=== PATIENT | female | born 1955 | race Caucasian/White ===

== ENCOUNTER → 2017-08-20 | Outpatient (CLI) | payer OTHER | END | disposition home or self-care (01) | LOC: OIH 13:34 | PROVIDERS: ATTEND Internal Medicine Cardiovascular Disease | DX: Z13.6 Encounter for screening for cardiovascular disorders (principal) | CPT/HCPCS: 75571 ==

== ENCOUNTER → 2024-06-09 | Outpatient (CLI) | payer MEDICARE ==
[~2024-06-09] MED LIST: IOHEXOL 350 MG/ML 100ML INFUS..BTL IV ONE; IOHEXOL-350 50ML VIAL IV ONE; metoPROLOL tartRATE 1 MG/ML 5ML VIAL IV ONE
--- NOTE | 2024-06-10 08:52 | HMCIMG ---
CT OF THE CHEST WITH CONTRAST- CT Cardiac Angio co-interpretation This is done as part of the CT cardiac angiogram study. The interpretation of the coronary arteries will be done by poultry dresser in a separate report. History: over-read Comparison: none CT Dose Index (CTDI): 77.90 mGy Dose Length Product (DLP): 493.40 total mGy PROTOCOL: Examination is done at 2.5 millimeter volumetric acquisition after contrast administration with Isovue 370, 100 cc IV, without complications. Photography is done at 5 millimeter thick intervals for the thorax. The examination begins above the heart and therefore the lung apices are incompletely included. The rest of the left lung is included but the right lung is only included up to its middle third. The periphery of the right lung is not included in the study. FINDINGS: The visualized part of the airway is preserved. The bony and soft tissue structures of the chest wall are unremarkable. The aorta is unremarkable. No mediastinal lymphadenopathy is seen. The lung windows demonstrate no worrisome pulmonary nodules, masses or infiltrates. There is no evidence of pulmonary embolism in the visualized lung segments. The upper abdominal views are unremarkable. Impression: No significant abnormalities identified.
== END | disposition home or self-care (01) ==
LOC: RAH 10:36
PROVIDERS: ATTEND Internal Medicine Cardiovascular Disease
DX: R06.02 Shortness of breath (principal)
CPT/HCPCS: 75574; J3490; Q9967 ×2

== ENCOUNTER → 2024-07-12 | Outpatient (CLI) | payer MEDICARE ==
[~2024-07-12] VITALS: Ht 161.3 cm; Wt 103.0 kg
[~2024-07-12] MED LIST changes: +ASPI-1443 PO; +BERB500C PO; +DiphenhydrAMINE HCL 50 MG/ML VIAL IVP SCH; +EMPA10TA PO; -IOHEXOL 350 MG/ML 100ML INFUS..BTL IV ONE; -IOHEXOL-350 50ML VIAL IV ONE; +LISI10TA24 PO; +METO-408 PO; +ROSU5TAB51 PO; +TIRZ12.5 SQ; -metoPROLOL tartRATE 1 MG/ML 5ML VIAL IV ONE
[2024-07-12 13:43] LABS: BASOPHILS # (AUTO) 0.07 K/uL (0.00-0.20); BASOPHILS % (AUTO) 0.9 % (0.0-5.0); EOSINOPHILS # (AUTO) 0.16 K/uL (0.00-0.70); HEMATOCRIT 45.9 % (36-48); IMMATURE GRANULOCYTE ABSOLUTE 0.03 K/uL (0-1); LYMPHOCYTES # (AUTO) 2.5 K/uL (1.0-4.8); LYMPHOCYTES % (AUTO) 31.1 % (21.0-51.0); MEAN CORPUSCULAR HEMOGLOBIN 28.6 pg (27.0-33.0); MEAN CORPUSCULAR HGB CONC 32.2 g/dL (32.0-36.0); MEAN CORPUSCULAR VOLUME 88.8 fL (79-99); MONOCYTES # (AUTO) 0.5 K/uL (0.1-1.0); MONOCYTES % (AUTO) 6.3 % (3.0-13.0); NEUTROPHILS # (AUTO) 4.8 K/uL (1.8-7.7); NEUTROPHILS % (AUTO) 59.3 % (40.0-77.0); PLATELET COUNT (AUTO) 253 K/uL (130-400); RED BLOOD CELL COUNT(AUTO) 5.17 MIL/uL (4.00-5.50); RED CELL DISTRIBUTION WIDTH 12.4 % (11.0-15.5); WHITE BLOOD COUNT (AUTO) 8.1 K/uL (4.8-10.8)
[2024-07-12 13:50] LABS: CREATININE 1.1 mg/dL (0.5-1.0); POTASSIUM 4.9 mmol/L (3.5-5.1)
[2024-07-12 13:54] LABS: INR 0.95 (0.85-1.15); PROTHROMBIN TIME 10.1 SEC (9.6-11.6)
[2024-07-12 13:55] LABS: PARTIAL THROMBOPLASTIN TIME 26.1 SEC (26.3-35.5)
[2024-07-12 14:05] VITALS: BP 107/56; PULSE 79; RESP 14; TEMP 97.5
--- NOTE | 2024-07-13 07:01 | EKG ---
[facility] Test Date: 2024-07-12 Test Time: 13:33:35 Pat Name: AVA PORTILLO Department: [facility] Room: Gender: F [employer] Supervisor: [id number] : 1955 Requested By: BIMAL PARIKH Order Number: [id number] Reading MD: Jayjay Rodríguez Measurements Intervals Welda Rate: 81 P: 16 AK: 171 QRS: 68 QRSD: 89 T: 24 QT: 379 QTc: 441 Interpretive Statements Sinus rhythm Poor R wave progression No previous ECG available for comparison Electronically Signed On 07-15-2024 15:03:10 CDT by Jayjay Rodríguez Please click the below link to view image of tracing.
== END | disposition home or self-care (01) ==
LOC: EDSTATUS 12:00 → DAH 12:40
PROVIDERS: ATTEND Internal Medicine Cardiovascular Disease
DX: I10 Essential (primary) hypertension (principal); R94.39 Abnormal result of other cardiovascular function study; E11.9 Type 2 diabetes mellitus without complications; E78.00 Pure hypercholesterolemia, unspecified; R53.83 Other fatigue; R06.02 Shortness of breath
CPT/HCPCS: 36415; 80048; 85025; 85610; 85730; 93005

== ENCOUNTER 2024-07-21 05:49 | Day surgery (SDC) | payer MEDICARE ==
[2024-07-19 12:36] LABS: BASOPHILS # (AUTO) 0.05 K/uL (0.00-0.20); BASOPHILS % (AUTO) 0.6 % (0.0-5.0); EOSINOPHILS # (AUTO) 0.15 K/uL (0.00-0.70); EOSINOPHILS % (AUTO) 1.8 % (0.0-8.0); HEMATOCRIT 45.5 % (36-48); IMMATURE GRANULOCYTE ABSOLUTE 0.03 K/uL (0-1); LYMPHOCYTES # (AUTO) 2.6 K/uL (1.0-4.8); LYMPHOCYTES % (AUTO) 31.8 % (21.0-51.0); MEAN CORPUSCULAR HGB CONC 32.5 g/dL (32.0-36.0); MONOCYTES # (AUTO) 0.5 K/uL (0.1-1.0); MONOCYTES % (AUTO) 6.6 % (3.0-13.0); NEUTROPHILS # (AUTO) 4.8 K/uL (1.8-7.7); NEUTROPHILS % (AUTO) 58.8 % (40.0-77.0); PLATELET COUNT (AUTO) 270 K/uL (130-400); RED BLOOD CELL COUNT(AUTO) 5.11 MIL/uL (4.00-5.50); RED CELL DISTRIBUTION WIDTH 12.4 % (11.0-15.5); WHITE BLOOD COUNT (AUTO) 8.2 K/uL (4.8-10.8)
[2024-07-19 12:44] LABS: CREATININE 0.9 mg/dL (0.5-1.0); POTASSIUM 4.4 mmol/L (3.5-5.1)
[2024-07-19 12:59] VITALS: BP 149/94; PULSE 81; RESP 17; TEMP 98.1
[2024-07-19 13:07] LABS: INR 0.96 (0.85-1.15); PROTHROMBIN TIME 10.2 SEC (9.6-11.6)
[2024-07-19 13:08] LABS: PARTIAL THROMBOPLASTIN TIME 28.1 SEC (26.3-35.5)
[2024-07-21] VITALS (10 sets, daily range): BP systolic 120–152; BP diastolic 58–76; PULSE 67–83; RESP 13–17; TEMP 97.4–97.7
[~2024-07-21] VITALS: Ht 161.3 cm; Wt 102.3 kg
[~2024-07-21 05:49] MED LIST changes: -DiphenhydrAMINE HCL 50 MG/ML VIAL IVP SCH
[2024-07-21] MEDS ORDERED: IOHEXOL-350 50ML VIAL IV ONE (07:08)
[2024-07-21] MEDS ORDERED: LIDOCAINE HCL 400MG/20ML VIAL ONE (07:08)
[2024-07-21] MEDS ORDERED: IOHEXOL 350 MG/ML 100ML INFUS..BTL IV ONE (07:08)
[2024-07-21] MEDS ORDERED: VERAPAMIL HCL 2.5 MG/ML VIAL ONE (07:08)
[2024-07-21] MEDS ORDERED: niCARDIpine 25MG INJ IV ONE (07:08)
[2024-07-21] MEDS ORDERED: NITROGLYCERIN 50MG VIAL ONE (07:09)
[2024-07-21] MEDS ORDERED: HEParin 10,000 UNIT/10ML (1,000 UNIT/ML) VIAL ONE (07:09)
[2024-07-21] MEDS ORDERED: HEParin-NS 1,000 UNIT/500 ML 1,000 ML IV ONE (07:09)
[2024-07-21] MEDS: 0.9%NACL 1000ML 1,000 ML IV SCH (07:25)
[2024-07-21] MEDS ORDERED: FENTanyl CITRate PF 50 MCG/1 ML 2ML VIAL ONE (07:30)
[2024-07-21] MEDS ORDERED: MIDAZOLAM HCL 1 MG/ML 2ML VIAL ONE (07:31)
[2024-07-21] MEDS ORDERED: DiphenhydrAMINE HCL 50 MG/ML VIAL ONE (07:36)
[2024-07-21] MEDS ORDERED: [UNRECOGNIZED DRUG - OTHER] IV SCH (09:00)
--- NOTE | 2024-07-21 11:07 | CCATH ---
PRIMARY CABLE MACHINE OPERATOR: Gilberto Kaur MD PROCEDURES PERFORMED: Ultrasound-guided right radial artery access, left heart catheterization, left and right coronary arteriography, left ventricular angiography. INDICATIONS: This 69-year-old lady presents with dyspnea on exertion. A CT coronary angiogram was read as showing a proximal 70% LAD stenosis; however, it was thought that the stenosis may be underestimated because of motion artifact. No other significant stenoses were identified. TECHNIQUE: After informed consent and premedication, the patient was brought to the cardiac catheterization laboratory in a fasting state where the right radial artery was accessed utilizing the ultrasound-guided micropuncture technique. A 6-Urdu TIG catheter and a 6-Urdu pigtail catheter were used. FINDINGS: LEFT MAIN: The left main has 0% stenosis. LAD: The LAD has mild disease only proximally. CIRCUMFLEX: The circumflex is nondominant. The large second obtuse marginal branch contains a 30% stenosis proximally. No other significant disease. RIGHT CORONARY ARTERY: The dominant right coronary artery has a 20-30% stenosis proximally and no other significant disease. LEFT VENTRICULAR ANGIOGRAPHY: The resting left ventricular end-diastolic pressure is 8 mmHg. There are no obvious wall motion abnormalities. The ejection fraction is approximately 60%. There is no aortic stenosis and no mitral regurgitation seen. The arteriotomy was closed with a TR band. MEDICATIONS: The patient received Versed 1 mg IV, fentanyl 25 mcg IV. She received a radial artery cocktail just after sheath insertion and a second radial artery cocktail just prior to sheath removal. Case start 07:35, case end 08:35. IMPRESSION: This patient does not have any significant coronary artery disease. The Ejection fraction is normal. PLAN: Continue medical therapy. TID: [id number] RECEIPT: [id number]
--- NOTE | 2024-07-21 11:15 | NUR ---
TR BAND REMOVED AT THIS TIME RIGHT RADIAL SITE ASYMPTOMATIC. STERILE GAUZE TEGADERM APPLIED TO AREA.
== END 2024-07-21 12:29 | disposition home or self-care (01) ==
LOC: DAH 05:49
PROVIDERS: ATTEND Internal Medicine Cardiovascular Disease
DX: R94.39 Abnormal result of other cardiovascular function study (principal); I25.10 Atherosclerotic heart disease of native coronary artery without angina pectoris; R06.09 Other forms of dyspnea; I10 Essential (primary) hypertension; E11.9 Type 2 diabetes mellitus without complications; E78.00 Pure hypercholesterolemia, unspecified; Z90.710 Acquired absence of both cervix and uterus; Z79.82 Long term (current) use of aspirin; Z79.01 Long term (current) use of anticoagulants; Z88.0 Allergy status to penicillin; Z79.899 Other long term (current) drug therapy
CPT/HCPCS: 80048; 85025; 85610; 85730; 36415; 93458; 82948; C1769; C1894 ×2; Q9965; J1200; J3010; J3490 ×3; J7030; J1644 ×2; J2250; Q9967 ×2; A4215; A6402; A4335; A4222; A4221; A4663; A4216; A6206; A4606; A4223 ×3; 96360; 96361; 99156; 99157